=== PATIENT | female | born 1965 | race Asian ===

== ENCOUNTER 2017-03-19 23:22 | Emergency (ER) | payer OTHER ==
[~2017-03-19] VITALS: Ht 160 cm; Wt 58.1 kg
--- NOTE | 2017-03-20 00:14 | NUR ---
DR. KENNEY AT BEDSIDE FOR EVAL.
[2017-03-20] MEDS ORDERED: diphenhydrAMINE HCL 50 MG/ML VIAL IV ONE (00:30)
[2017-03-20] MEDS ORDERED: PROCHLORPERAZINE EDISYLATE 10 MG/2 ML VIAL IVP ONE (00:30)
[2017-03-20] MEDS ORDERED: HYDROMORPHONE 1 MG/1 ML DISP.SYRIN IV ONE (00:30)
[2017-03-20] MEDS ORDERED: HYDROMORPHONE 1 MG/1 ML DISP.SYRIN ONE (00:40)
[2017-03-20] MEDS ORDERED: PROCHLORPERAZINE EDISYLATE 10 MG/2 ML VIAL ONE (00:40)
[2017-03-20] MEDS ORDERED: diphenhydrAMINE HCL 50 MG/ML VIAL ONE (00:40)
--- NOTE | 2017-03-20 03:30 | NUR ---
PT. DC'D TO HOME IN STABLE CONDITION. SLIGHT [place] STILL. WRITTEN & VERBAL AFTER CARE INSTRUC- TIONS GIVEN. PT'S DAUGHTER AT BS. PT. ABLE TO SIGN OFF DISCHARGE INSTRUCTIONS. PIV TO RT. HAND WAS DC'D & BANDAGED. PT. WAS AMBULATORY W/STEADY GAIT. CONT. POC.
[2017-03-20 04:21] VITALS: BP 113/55
== END 2017-03-20 03:30 | disposition home or self-care (01) ==
LOC: ER 23:24
DX: R51 Headache (principal); Z86.73 Personal history of transient ischemic attack (TIA), and cerebral infarction without residual deficits; Z90.710 Acquired absence of both cervix and uterus; Z88.1 Allergy status to other antibiotic agents
CPT/HCPCS: A4606; J0780; J1170; J1200; Z7610